=== PATIENT | female | born 1945 | race Caucasian/White ===

== ENCOUNTER 2017-12-31 19:25 | Emergency (ER) | payer OTHER ==
[~2017-12-31] VITALS: Ht 160 cm; Wt 96.8 kg
[~2017-12-31 19:25] MED LIST: Aquasol-A,Vitamin A PO; CENTRUM SILVER1 EACH PO; Combigan Ophth Soln RIGHT EYE; Coumadin Protocol PO; ESTRACE0.5 MG PO; GARLIQUE PO; GARLIQUE400 MG PO; GLUCOSAMINE &1 EACH PO; GLUCOSAMINE-CH1 EA48 PO; Garlic PO; Glucosamine/Chondroi PO; IRON325 MG PO; LEVOTHYROXINE125 MCG PO; Levothroid,Synthroid PO; Lumigan 0.01% Ophth BOTH EYES; OXYCODONE HCL5 MG PO; Omega III EPA + DHA PO; PREMARIN0.625 MG PO; SYNTHROID,LEVO0.5 MG IM; Senokot S,Pericolace PO; TYLENOL REGULA325 MG PO; Theragran-M,Centrum, PO; VITAMIN A TP; oxyCODONE PO
[2017-12-31] MEDS ORDERED: NAPROSYN500 MG PO (19:52)
[2017-12-31] MEDS ORDERED: FLEXERIL10 MG PO (19:52)
[2017-12-31 20:28] VITALS: BP 162/80
== END 2017-12-31 20:30 | disposition home or self-care (01) ==
LOC: EME 19:25
DX: M25.511 Pain in right shoulder (principal); Z88.1 Allergy status to other antibiotic agents; Z88.8 Allergy status to other drugs, medicaments and biological substances
CPT/HCPCS: 99281; 99283